=== PATIENT | female | born 1945 | race Caucasian/White ===

== ENCOUNTER 2017-02-14 14:33 | Emergency (ER) | payer OTHER ==
--- NOTE | 2017-02-14 16:11 | DIAGNOSTIC IMAGING REPORT ---
PROCEDURE: XR CHEST 2 VIEW INDICATION: FEVER TECHNIQUE: PA and lateral view. COMPARISON: Chest x-ray 05/30/2009 FINDINGS: Small right and moderate left basilar alveolar infiltrates. Cardiovascular structures are normal. Bony thorax is unremarkable. IMPRESSION: 1. Bilateral pneumonia. Recommend follow-up chest x-ray in 3 weeks to confirm complete resolution.
--- NOTE | 2017-02-14 16:23 | ED NURSING NOTES ---
Clinical Report - Nurses [facility] [address] [place] [address] 02/14/2017 14:35 Patient: PHANI BOOTH TRIAGE Triage time 14:42. Acuity: LEVEL 3. Chief Complaint: COUGH. Alert. No acute distress. SEPSIS SCREEN: Sepsis Screen. Negative (no infection suspected/documented). LISETTE COMA SCORE: [place] Coma Scale: 15- eyes open spontaneously (4); best verbal response- oriented x 4 (5); best motor response- obeys commands (6). --14:48 Jenn Black R.N. 14:42 02/14/17. BP: 158/70. HR: 89. RR: 24. O2 saturation: 96%. Temp: 97.8 F. Pain level now: 01/01. --14:48 Jenn Black R.N. Weight: 81.6 kg stated. Height/Length: 64 inches Per Patient. BMI: 30.9. --14:46 Jenn Black R.N. Medications None. --14:45 Jenn Black R.N. Allergies Codeine. Percocet. Soma. --14:45 Jenn Black R.N. History Arrived by private vehicle. Historian: patient. Accompanied by family. Primary physician (Dr. Chavez). Onset. (2 months ago and continues to get worse). 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 PAST MEDICAL HX: Immunizations: up-to-date. SOCIAL HX: Heavy tobacco smoker (cigarette)- 1 pack per day. Occasional alcohol use. No drug use. No infectious disease exposure. ABUSE ASSESSMENT: Abuse assessment: The patient was asked "Do you feel safe in your home?" and "Has anyone hurt you or threatened to hurt you?". No report of abuse. SELF HARM ASSESSMENT: A self harm assessment was performed. The patient answered "no" to the question "Do you have thoughts of harming or killing yourself?" and "Have you recently had thoughts about harming or killing others?". NUTRITIONAL RISK ASSESSMENT: The nutritional risk assessment revealed no deficiencies. FUNCTIONAL ASSESSMENT: Functional assessment: no impairments noted. LEARNING NEEDS ASSESSMENT: The learning needs assessment revealed no barriers. --14:48 Jenn Black R.N. PROBLEMS: "mild heart attack". Sciatica. Hypertension. Headache. --14:45 Jenn Black R.N. ADDITIONAL SURGERIES: Appendectomy. Hysterectomy. Inguinal Hernia Repair. --14:46 Jenn Black R.N. Interventions ID band on patient. Ambulatory. --14:48 Jenn Black R.N. PHYSICAL ASSESSMENT Ambulatory to room. GENERAL / NEURO / PSYCH: Alert. Appears in no acute distress. HEENT: Mucous membranes are pink. RESPIRATORY: Respirations not labored. CVS: Capillary refill less than 2 seconds. SKIN: Skin is warm and dry. --14:48 Jenn Black R.N. NURSING PROGRESS NOTES Patient gowned. Head of bed elevated. Two patient identifiers checked. Call light placed in reach. Side rails up x 2. Bed placed in lowest position. Brakes of bed on. Patient ready for evaluation- chart flagged. --14:49 Jenn Blakc R.N. Patient transported to radiology by stretcher with tech. --14:53 Jenn Black R.N. 15:03 02/14/2017 Duoneb (Ipratropium-Albuterol) Neb TX 1 unit dose given. Given by the respiratory therapist. Allergies verified and confirmed 5 rights. --15:03 Jenn Black R.N. 15:04. Patient ID band checked for patient name, birthdate and medical record number: patient confirmed. Blood samples drawn from the right antecubital space peripheral IV site by nurse per protocol ; labeled in presence of the patient and sent to lab: jody set. --15:04 Jenn Black R.N. 16:08 02/14/2017 Levaquin (Levofloxacin) PO 750 mg given. Allergies verified and confirmed 5 rights. --16:08 Jenn Black R.N. 16:08 02/14/17. BP: 160/72. HR: 73. RR: 20. O2 saturation: 97%. Temp: 98.1 F. Pain level now 2/10. --16:09 Jenn Black R.N. DISPOSITION / DISCHARGE ( 16:08 02/14/17. BP: 160/72. HR: 73. RR: 20. O2 saturation: 97%. Temp: 98.1 F. Pain level now 01/01. 16:09 Jenn Black R.N.). --16:47 Jenn Black R.N. 16:30 02/14/17. RR: 22. --16:47 Jenn Black R.N. 16:30. Departure time: 1630. No learning barriers present. Discharge instructions provided and reviewed with the patient. Reviewed medication(s) side effects, precautions, dosing and course information. Prescription(s) given to the patient. Reviewed referral to family practice for followup. Patient verbalized understanding. Written instructions provided in [place]. The patient was discharged home and accompanied by family. She left the Emergency Department ambulatory and via private vehicle. Family member driving. Medication list reviewed and validated. --16:48 Jenn Black R.N. Locked/Released at 02/14/2017 16:48 by Jenn Black R.N.
--- NOTE | 2017-02-14 16:23 | ED CLINICAL REPORT ---
Clinical Report - Physicians/Mid Levels [facility] [address] [place] [address] 02/14/2017 14:35 Patient: PHANI BOOTH Time Seen: 14:49 Feb 14 2017. Arrived- By private vehicle. Historian- patient and family. HISTORY OF PRESENT ILLNESS Chief Complaint: COUGH. 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 The illness is described as mild. The patient has had a cough. No muscle aches, sore throat, hoarseness, sinus pressure or sinus drainage. Additional history - No known contact with a sick individual. No recent travel. Recent medical care: Not recently seen/assessed. REVIEW OF SYSTEMS No headache, vomiting, pedal edema, calf pain or difficulty with urination. All systems otherwise negative, except as recorded above. PAST HISTORY No history of chronic obstructive pulmonary disease. SOCIAL HISTORY Smoker- current status unknown (>30 pack year history). No alcohol use. ADDITIONAL NOTES The nursing notes have been reviewed. PHYSICAL EXAM Vital Signs: 02/14/2017 14:42 BP: 158/70. HR: 89. RR: 24. O2 saturation: 96%. Temp: 97.8 F. Pain level now: 2/10. Appearance: Alert. No apparent distress. Does not appear to be in pain. ENT: Ears normal. Pharynx normal. Neck: Normal inspection. No meningeal signs. CVS: Normal heart rate and rhythm. Heart sounds normal. No cardiac murmur. Respiratory: Wheezing present. No accessory muscle use or retractions. Abdomen: Soft and nontender. No guarding or rebound tenderness. Back: Normal inspection. No CVA tenderness. Extremities: No lower extremity edema. Neuro: (tremor b/l hands). LABS, X-RAYS, AND EKG Chest X-ray: (IMPRESSION: 1. Negative chest. Electronically Final signed by:Jairon Pyle MD 02/14/2017 4:09:52 PM). Laboratory Tests: CBC w Diff: (ESTEBAN: 02/14/2017 15:05) ( MsgRcvd 02/14/2017 15:14) Final results Test Result Flag Units (Reference) WHITE BLOOD COUNT 7.8 K/uL (4.5-11.5) RED BLOOD COUNT 4.90 M/uL (4.00-5.20) HEMOGLOBIN 14.1 gm/dL (12.0-16.0) HEMATOCRIT 42.2 % (36.0-46.0) MEAN CELL VOLUME 86 fL (80-100) MEAN CORPUSCULAR HGB 29 pg (26-34) MEAN CORPUSCULAR HGB CONC 33 g/dL (31-37) RED CELL DISTRIBUTION WIDTH 14.8 % (11.6-14.8) PLATELET COUNT 262 K/uL (150-400) NEUTROPHIL % 78.5 H % (50-75) LYMPH % 17.5 L % (25-40) MONO % 3.2 % (3-14) EOSINOPHIL % 0.4 % (0-4) BASOPHIL % 0.4 % (0-2) CMP: (ESTEBAN: 02/14/2017 15:05) ( MsgRcvd 02/14/2017 15:44) Final results Test Result Flag Units (Reference) GLUCOSE 114 H mg/dL (70-110) BUN 9 mg/dL (7-18) CREATININE 0.9 mg/dL (0.6-1.3) Estimated GFR >60 mL/min Estimated GFR- >60 mL/min Note: Persistent reduction over 3 months in eGFR<60 mL/min/1.73 m2 defines CKD. Patients with eGFR values>=60 mL/min/1.73 m2 may also have CKD if evidence ofpersistent proteinuria. Additional information may be foundat www.kidney.org. SODIUM 142 mmol/L (136-145) POTASSIUM 3.5 mmol/L (3.5-5.1) CHLORIDE 107 mmol/L (98-107) CARBON DIOXIDE 25 mmol/L (21-32) CALCIUM 9.3 mg/dL (8.5-10.1) TOTAL PROTEIN 7.7 g/dL (6.4-8.2) ALBUMIN 3.3 g/dL (3.3-5.0) BILIRUBIN, TOTAL 0.5 mg/dL (0.0-1.0) ALKALINE PHOSPHATASE 91 U/L (46-116) AST (SGOT) 27 U/L (15-37) ALT (SGPT) 24 U/L (12-78) . PROGRESS AND PROCEDURES Course of Care: Patient here in the ER, with obvious signs of pneumonia, no comp surgery issues, she is not taking any chronic medications, no new murmur, no lower extremity swelling, leukocytosis, afebrile good sat in the ER. Patient here with daughter, and agrees to follow up in 2 weeks to ensure improvement. Started on antibiotics. No recent complications or hospitalizations. She denies comorbidities, however also states she does not like to see or frequent doctor's office. Spoke in regard to htn, and pt to have such convo with her pcp. Patient is stable. Symptoms better. Patient/family counseled. Disposition: Discharged. CLINICAL IMPRESSION Bacterial pneumonia. Hypertension. INSTRUCTIONS Drink plenty of fluids. Do not smoke. Prescription Medications: Albuterol HFA oral inhaler: inhale 1 to 2 puffs every four to six hours as needed for difficulty breathing. Dispense one (1) unit. No refills. Levaquin 750 mg: take 1 tab orally every day for 7 days. No refills. Substitution is permissible. Follow-up: Follow up with your doctor in two weeks. (Electronically signed by Gretchen Kang P.A.-C 02/14/2017 19:04)
--- NOTE | 2017-02-14 16:23 | ED NURSING NOTES ---
Clinical Report - Nurses [facility] [address] [place] [address] 02/14/2017 14:35 Patient: PHANI BOOTH TRIAGE Triage time 14:42. Acuity: LEVEL 3. Chief Complaint: COUGH. Alert. No acute distress. SEPSIS SCREEN: Sepsis Screen. Negative (no infection suspected/documented). LISETTE COMA SCORE: [place] Coma Scale: 15- eyes open spontaneously (4); best verbal response- oriented x 4 (5); best motor response- obeys commands (6). --14:48 Jenn Black R.N. 14:42 02/14/17. BP: 158/70. HR: 89. RR: 24. O2 saturation: 96%. Temp: 97.8 F. Pain level now: 01/01. --14:48 Jenn Black R.N. Weight: 81.6 kg stated. Height/Length: 64 inches Per Patient. BMI: 30.9. --14:46 Jenn Black R.N. Medications None. --14:45 Jenn Black R.N. Allergies Codeine. Percocet. Soma. --14:45 Jenn Black R.N. History Arrived by private vehicle. Historian: patient. Accompanied by family. Primary physician (Dr. Chavez). Onset. (2 months ago and continues to get worse). 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 PAST MEDICAL HX: Immunizations: up-to-date. SOCIAL HX: Heavy tobacco smoker (cigarette)- 1 pack per day. Occasional alcohol use. No drug use. No infectious disease exposure. ABUSE ASSESSMENT: Abuse assessment: The patient was asked "Do you feel safe in your home?" and "Has anyone hurt you or threatened to hurt you?". No report of abuse. SELF HARM ASSESSMENT: A self harm assessment was performed. The patient answered "no" to the question "Do you have thoughts of harming or killing yourself?" and "Have you recently had thoughts about harming or killing others?". NUTRITIONAL RISK ASSESSMENT: The nutritional risk assessment revealed no deficiencies. FUNCTIONAL ASSESSMENT: Functional assessment: no impairments noted. LEARNING NEEDS ASSESSMENT: The learning needs assessment revealed no barriers. --14:48 Jenn Black R.N. PROBLEMS: "mild heart attack". Sciatica. Hypertension. Headache. --14:45 Jenn Black R.N. ADDITIONAL SURGERIES: Appendectomy. Hysterectomy. Inguinal Hernia Repair. --14:46 Jenn Black R.N. Interventions ID band on patient. Ambulatory. --14:48 Jenn Black R.N. PHYSICAL ASSESSMENT Ambulatory to room. GENERAL / NEURO / PSYCH: Alert. Appears in no acute distress. HEENT: Mucous membranes are pink. RESPIRATORY: Respirations not labored. CVS: Capillary refill less than 2 seconds. SKIN: Skin is warm and dry. --14:48 Jenn Black R.N. NURSING PROGRESS NOTES Patient gowned. Head of bed elevated. Two patient identifiers checked. Call light placed in reach. Side rails up x 2. Bed placed in lowest position. Brakes of bed on. Patient ready for evaluation- chart flagged. --14:49 Jenn Black R.N. Patient transported to radiology by stretcher with tech. --14:53 Jenn Black R.N. 15:03 02/14/2017 Duoneb (Ipratropium-Albuterol) Neb TX 1 unit dose given. Given by the respiratory therapist. Allergies verified and confirmed 5 rights. --15:03 Jenn Black R.N. 15:04. Patient ID band checked for patient name, birthdate and medical record number: patient confirmed. Blood samples drawn from the right antecubital space peripheral IV site by nurse per protocol ; labeled in presence of the patient and sent to lab: jody set. --15:04 Jenn Black R.N. 16:08 02/14/2017 Levaquin (Levofloxacin) PO 750 mg given. Allergies verified and confirmed 5 rights. --16:08 Jenn Black R.N. 16:08 02/14/17. BP: 160/72. HR: 73. RR: 20. O2 saturation: 97%. Temp: 98.1 F. Pain level now 2/10. --16:09 Jenn Black R.N. DISPOSITION / DISCHARGE ( 16:08 02/14/17. BP: 160/72. HR: 73. RR: 20. O2 saturation: 97%. Temp: 98.1 F. Pain level now 01/01. 16:09 Jenn Black R.N.). --16:47 Jenn Black R.N. 16:30 02/14/17. RR: 22. --16:47 Jenn Black R.N. 16:30. Departure time: 1630. No learning barriers present. Discharge instructions provided and reviewed with the patient. Reviewed medication(s) side effects, precautions, dosing and course information. Prescription(s) given to the patient. Reviewed referral to family practice for followup. Patient verbalized understanding. Written instructions provided in Mong[place]ian. The patient was discharged home and accompanied by family. She left the Emergency Department ambulatory and via private vehicle. Family member driving. Medication list reviewed and validated. --16:48 Jenn Black R.N. Locked/Released at 02/14/2017 16:48 by Jenn Black R.N.
--- NOTE | 2017-02-14 16:23 | ED ORDER SUMMARY ---
..... Patient: PHANI BOOTH OrderSheet [facility] VisitID: [id number] [place] [address] 71y, F Registration Date/Time: 02/14/2017 ORDER SHEET Weight: 81.6 kg (stated) Allergies: Codeine, Percocet, Soma GENERAL ORDERS: Chest 2V Urgent (14:47 02/14/2017 EKoroleva P.A.-C) (Ack 14:50 RKaruga) (15:03 SReitz R.N.) CBC w Diff Urgent (14:47 02/14/2017 EKoroleva P.A.-C) (Ack 14:50 RKaruga) (15:03 SReitz R.N.) CMP Urgent (14:47 02/14/2017 EKoroleva P.A.-C) (Ack 14:50 RKaruga) (15:03 SReitz R.N.) MEDICATION ORDERS: DuoNeb Neb Tx 1 unit dose (NOW) (14:47 02/14/2017 EKoroleva P.A.-C) (15:03 SReitz R.N.) Levaquin PO 750 mg (NOW) (15:45 02/14/2017 EKoroleva P.A.-C) (Ack 16:03 SReitz R.N.) (16:08 SReitz R.N.) IV FLUIDS: ORDER SHEET NOTES: [Electronically signed by Jenn Black R.N. (16:48 02/14/2017)] [Electronically signed by Gretchen Kang P.A.-C (19:04 02/14/2017)] [Electronically locked/signed by Jenn Black R.N. (16:48 02/14/2017)]
--- NOTE | 2017-02-14 16:23 | ED ORDER SUMMARY ---
..... Patient: PHANI BOOTH OrderSheet [facility] VisitID: [id number] [place] [address] 71y, F Registration Date/Time: 02/14/2017 ORDER SHEET Weight: 81.6 kg (stated) Allergies: Codeine, Percocet, Soma GENERAL ORDERS: Chest 2V Urgent (14:47 02/14/2017 EKoroleva P.A.-C) (Ack 14:50 RKaruga) (15:03 SReitz R.N.) CBC w Diff Urgent (14:47 02/14/2017 EKoroleva P.A.-C) (Ack 14:50 RKaruga) (15:03 SReitz R.N.) CMP Urgent (14:47 02/14/2017 EKoroleva P.A.-C) (Ack 14:50 RKaruga) (15:03 SReitz R.N.) MEDICATION ORDERS: DuoNeb Neb Tx 1 unit dose (NOW) (14:47 02/14/2017 EKoroleva P.A.-C) (15:03 SReitz R.N.) Levaquin PO 750 mg (NOW) (15:45 02/14/2017 EKoroleva P.A.-C) (Ack 16:03 SReitz R.N.) (16:08 SReitz R.N.) IV FLUIDS: ORDER SHEET NOTES: [Electronically signed by Jenn Black R.N. (16:48 02/14/2017)] [Electronically signed by Gretchen Kang P.A.-C (19:04 02/14/2017)] [Electronically locked/signed by Jenn Black R.N. (16:48 02/14/2017)]
--- NOTE | 2017-02-14 19:04 | ED DISCHARGE INSTRUCTIONS ---
Patient: PHANI BOOTH General Instructions [facility] VisitID: [id number] [place] [address] 71y, F Registration Date/Time: 02/14/2017 Bacterial pneumonia. Hypertension. INSTRUCTIONS Drink plenty of fluids. Do not smoke. Prescription Medications: Albuterol HFA oral inhaler: inhale 1 to 2 puffs every four to six hours as needed for difficulty breathing. Dispense one (1) unit. No refills. Levaquin 750 mg: take 1 tab orally every day for 7 days. No refills. Substitution is permissible. Follow-up: Follow up with your doctor in two weeks. ADDITIONAL INFORMATION Pneumonia (Adult) Pneumonia is an infection deep within the lung, in the small air sacs (alveoli). It may be due to a virus or bacteria and is usually treated with an antibiotic. Severe cases require treatment in the hospital. Milder cases can be treated at home. Symptoms usually start to improve during the first2 days of treatment. Home Care: Rest at home for the first 23 days or until you feel stronger. When resuming activity, dont let yourself become overly tired. Avoid exposure to cigarette smoke (yours or others). You may use acetaminophen (Tylenol) or ibuprofen (Motrin, Advil) to control fever or pain, unless another medicine was prescribed. [NOTE: If you have chronic liver or kidney disease or ever had a stomach ulcer or GI bleeding, talk with your doctor before using these medicines.] (Aspirin should never be used in anyone under 18 years of age who is ill with a fever. It may cause severe liver damage.) Your appetite may be poor so a light diet is fine. Keep well hydrated by drinking 68 glasses of fluids per day (water, sport drinks such as Gatorade, sodas without caffeine, juices, tea, soup, etc.). This will help loosen secretions in the lung, making it easier for you to cough up the phlegm (sputum). If you also have heart or kidney disease, check with your doctor before you drink extra amounts of fluids. Finish all antibiotic medicine prescribed, even if you are feeling better after a few days. Follow Up with your doctor in the next 23 days (or as advised) to be sure you are responding properly to the medicine. [NOTE: If you are age 65 or older, or if you have chronic lung disease (asthma, emphysema or COPD), we recommendthe pneumococcal vaccination and a yearlyinfluenzavaccination(flu-shot) every . Ask your doctor about this.] Get Prompt Medical Attention if any of the following occur: Not getting better within the first 48 hours of treatment Increasing shortness of breath or rapid breathing (over 25 breaths/minute) Coughing up blood or increasing chest pain with breathing Fever of 100.4F (38C) oral or higher, not better with fever medication Increasing weakness, dizziness or fainting Increasing thirst or dry mouth Sinus pain, headache or a stiff neck Chest pain not caused by coughing Levofloxacin Oral tablet What is this medicine? LEVOFLOXACIN (ashwin abdul) is a quinolone antibiotic. It is used to treat certain kinds of bacterial infections. It will not work for colds, flu, or other viral infections. How should I use this medicine? Take this medicine by mouth with a full glass of water. Follow the directions on the prescription label. This medicine can be taken with or without food. Take your medicine at regular intervals. Do not take your medicine more often than directed. Do not skip doses or stop your medicine early even if you feel better. Do not stop taking except on your doctor's advice. A special MedGuide will be given to you by the pharmacist with each prescription and refill. Be sure to read this information carefully each time. Talk to your detonator assembler regarding the use of this medicine in children. While this drug may be prescribed for children as young as 6 months for selected conditions, precautions do apply. What side effects may I notice from receiving this medicine? Side effects that you should report to your doctor or health healthcare consulting manager as soon as possible: -allergic reactions like skin rash or hives, swelling of the face, lips, or tongue -changes in vision -confusion, nightmares or hallucinations -difficulty breathing -irregular heartbeat, chest pain -joint, muscle or tendon pain -pain or difficulty passing urine -persistent headache with or without blurred vision -redness, blistering, peeling or loosening of the skin, including inside the mouth -seizures -unusual pain, numbness, tingling, or weakness -vaginal irritation, discharge Side effects that usually do not require medical attention (report to your doctor or health healthcare consulting manager if they continue or are bothersome): -diarrhea -dry mouth -headache -stomach upset, nausea -trouble sleeping What may interact with this medicine? Do not take this medicine with any of the following medications: - arsenic trioxide - chloroquine - droperidol - medicines for irregular heart rhythm like amiodarone, disopyramide, dofetilide, flecainide, quinidine, procainamide, sotalol - some medicines for depression or mental problems like phenothiazines, pimozide, and ziprasidone This medicine may also interact with the following medications: - amoxapine -antacids - cisapride - dairy products - didanosine (ddI) buffered tablets or powder - haloperidol - multivitamins -NSAIDS, medicines for pain and inflammation, like ibuprofen or naproxen - retinoid products like tretinoin or isotretinoin - risperidone - some other antibiotics like clarithromycin or erythromycin - sucralfate - theophylline - warfarin What if I miss a dose? If you miss a dose, take it as soon as you remember. If it is almost time for your next dose, take only that dose. Do not take double or extra doses. Where should I keep my medicine? Keep out of the reach of children. Store at room temperature between 15 and 30 degrees C (59 and 86 degrees F). Keep in a tightly closed container. Throw away any unused medicine after the expiration date. What should I tell my health care provider before I take this medicine? They need to know if you have any of these conditions: cerebral disease irregular heartbeat kidney disease seizure disorder an unusual or allergic reaction to levofloxacin, other antibiotics or medicines, foods, dyes, or preservatives or trying to get breast-feeding What should I watch for while using this medicine? Tell your doctor or health healthcare consulting manager if your symptoms do not improve or if they get worse. Drink several glasses of water a day and cut down on drinks that contain caffeine. You must not get dehydrated while taking this medicine. You may get drowsy or dizzy. Do not drive, use machinery, or do anything that needs mental alertness until you know how this medicine affects you. Do not sit or stand up quickly, especially if you are an older patient. This reduces the risk of dizzy or fainting spells. This medicine can make you more sensitive to the sun. Keep out of the sun. If you cannot avoid being in the sun, wear protective clothing and use a sunscreen. Do not use sun lamps or tanning beds/booths. Contact your doctor if you get a sunburn. If you are a diabetic monitor your blood glucose carefully. If you get an unusual reading stop taking this medicine and call your doctor right away. Do not treat diarrhea with [id number] products. Contact your doctor if you have diarrhea that lasts more than 2 days or if the diarrhea is severe and watery. Avoid antacids, calcium, iron, and zinc products for 2 hours before and 2 hours after taking a dose of this medicine. You have been given the following additional information: Pneumonia (Adult) Levofloxacin Oral tablet (Electronically signed by Gretchen Kang P.A.-C 02/14/2017 19:04)
--- NOTE | 2017-02-14 19:04 | ED MAR SUMMARY ---
..... Medication Administration Record [facility] [address] [place] [address] Patient: PHANI BOOTH Visit ID: [id number] 71y, F Weight: 81.6 kg Height/Length: 64 in BMI: 30.9 ALLERGIES: Codeine, Percocet, Soma Given 15:03 02/14/2017 Jenn Black RLuz Medication Administered: DUONEB [NEB TX] (IPRATROPIUM-ALBUTEROL), Dose: 1 unit dose Neb TX. Medication Ordered: DuoNeb Neb Tx 1 unit dose (NOW). Given 16:08 02/14/2017 Jenn Black, RSunnyNSunny Medication Administered: LEVAQUIN [PO] (LEVOFLOXACIN), Dose: 750 mg PO. Medication Ordered: Levaquin PO 750 mg (NOW).
--- NOTE | 2017-02-14 19:04 | ED DISCHARGE INSTRUCTIONS ---
Patient: PHANI BOOTH General Instructions [facility] VisitID: [id number] [place] [address] 71y, F Registration Date/Time: 02/14/2017 Bacterial pneumonia. Hypertension. INSTRUCTIONS Drink plenty of fluids. Do not smoke. Prescription Medications: Albuterol HFA oral inhaler: inhale 1 to 2 puffs every four to six hours as needed for difficulty breathing. Dispense one (1) unit. No refills. Levaquin 750 mg: take 1 tab orally every day for 7 days. No refills. Substitution is permissible. Follow-up: Follow up with your doctor in two weeks. ADDITIONAL INFORMATION Pneumonia (Adult) Pneumonia is an infection deep within the lung, in the small air sacs (alveoli). It may be due to a virus or bacteria and is usually treated with an antibiotic. Severe cases require treatment in the hospital. Milder cases can be treated at home. Symptoms usually start to improve during the first2 days of treatment. Home Care: Rest at home for the first 23 days or until you feel stronger. When resuming activity, dont let yourself become overly tired. Avoid exposure to cigarette smoke (yours or others). You may use acetaminophen (Tylenol) or ibuprofen (Motrin, Advil) to control fever or pain, unless another medicine was prescribed. [NOTE: If you have chronic liver or kidney disease or ever had a stomach ulcer or GI bleeding, talk with your doctor before using these medicines.] (Aspirin should never be used in anyone under 18 years of age who is ill with a fever. It may cause severe liver damage.) Your appetite may be poor so a light diet is fine. Keep well hydrated by drinking 68 glasses of fluids per day (water, sport drinks such as Gatorade, sodas without caffeine, juices, tea, soup, etc.). This will help loosen secretions in the lung, making it easier for you to cough up the phlegm (sputum). If you also have heart or kidney disease, check with your doctor before you drink extra amounts of fluids. Finish all antibiotic medicine prescribed, even if you are feeling better after a few days. Follow Up with your doctor in the next 23 days (or as advised) to be sure you are responding properly to the medicine. [NOTE: If you are age 65 or older, or if you have chronic lung disease (asthma, emphysema or COPD), we recommendthe pneumococcal vaccination and a yearlyinfluenzavaccination(flu-shot) every . Ask your doctor about this.] Get Prompt Medical Attention if any of the following occur: Not getting better within the first 48 hours of treatment Increasing shortness of breath or rapid breathing (over 25 breaths/minute) Coughing up blood or increasing chest pain with breathing Fever of 100.4F (38C) oral or higher, not better with fever medication Increasing weakness, dizziness or fainting Increasing thirst or dry mouth Sinus pain, headache or a stiff neck Chest pain not caused by coughing Levofloxacin Oral tablet What is this medicine? LEVOFLOXACIN (ashwin abdul) is a quinolone antibiotic. It is used to treat certain kinds of bacterial infections. It will not work for colds, flu, or other viral infections. How should I use this medicine? Take this medicine by mouth with a full glass of water. Follow the directions on the prescription label. This medicine can be taken with or without food. Take your medicine at regular intervals. Do not take your medicine more often than directed. Do not skip doses or stop your medicine early even if you feel better. Do not stop taking except on your doctor's advice. A special MedGuide will be given to you by the pharmacist with each prescription and refill. Be sure to read this information carefully each time. Talk to your track layer head regarding the use of this medicine in children. While this drug may be prescribed for children as young as 6 months for selected conditions, precautions do apply. What side effects may I notice from receiving this medicine? Side effects that you should report to your doctor or health regular senior care provider as soon as possible: -allergic reactions like skin rash or hives, swelling of the face, lips, or tongue -changes in vision -confusion, nightmares or hallucinations -difficulty breathing -irregular heartbeat, chest pain -joint, muscle or tendon pain -pain or difficulty passing urine -persistent headache with or without blurred vision -redness, blistering, peeling or loosening of the skin, including inside the mouth -seizures -unusual pain, numbness, tingling, or weakness -vaginal irritation, discharge Side effects that usually do not require medical attention (report to your doctor or health regular senior care provider if they continue or are bothersome): -diarrhea -dry mouth -headache -stomach upset, nausea -trouble sleeping What may interact with this medicine? Do not take this medicine with any of the following medications: - arsenic trioxide - chloroquine - droperidol - medicines for irregular heart rhythm like amiodarone, disopyramide, dofetilide, flecainide, quinidine, procainamide, sotalol - some medicines for depression or mental problems like phenothiazines, pimozide, and ziprasidone This medicine may also interact with the following medications: - amoxapine -antacids - cisapride - dairy products - didanosine (ddI) buffered tablets or powder - haloperidol - multivitamins -NSAIDS, medicines for pain and inflammation, like ibuprofen or naproxen - retinoid products like tretinoin or isotretinoin - risperidone - some other antibiotics like clarithromycin or erythromycin - sucralfate - theophylline - warfarin What if I miss a dose? If you miss a dose, take it as soon as you remember. If it is almost time for your next dose, take only that dose. Do not take double or extra doses. Where should I keep my medicine? Keep out of the reach of children. Store at room temperature between 15 and 30 degrees C (59 and 86 degrees F). Keep in a tightly closed container. Throw away any unused medicine after the expiration date. What should I tell my health care provider before I take this medicine? They need to know if you have any of these conditions: cerebral disease irregular heartbeat kidney disease seizure disorder an unusual or allergic reaction to levofloxacin, other antibiotics or medicines, foods, dyes, or preservatives or trying to get breast-feeding What should I watch for while using this medicine? Tell your doctor or health regular senior care provider if your symptoms do not improve or if they get worse. Drink several glasses of water a day and cut down on drinks that contain caffeine. You must not get dehydrated while taking this medicine. You may get drowsy or dizzy. Do not drive, use machinery, or do anything that needs mental alertness until you know how this medicine affects you. Do not sit or stand up quickly, especially if you are an older patient. This reduces the risk of dizzy or fainting spells. This medicine can make you more sensitive to the sun. Keep out of the sun. If you cannot avoid being in the sun, wear protective clothing and use a sunscreen. Do not use sun lamps or tanning beds/booths. Contact your doctor if you get a sunburn. If you are a diabetic monitor your blood glucose carefully. If you get an unusual reading stop taking this medicine and call your doctor right away. Do not treat diarrhea with [id number] products. Contact your doctor if you have diarrhea that lasts more than 2 days or if the diarrhea is severe and watery. Avoid antacids, calcium, iron, and zinc products for 2 hours before and 2 hours after taking a dose of this medicine. You have been given the following additional information: Pneumonia (Adult) Levofloxacin Oral tablet (Electronically signed by Gretchen Kang P.A.-C 02/14/2017 19:04)
--- NOTE | 2017-02-14 19:04 | ED MAR SUMMARY ---
..... Medication Administration Record [facility] [address] [place] [address] Patient: PHANI BOOTH Visit ID: [id number] 71y, F Weight: 81.6 kg Height/Length: 64 in BMI: 30.9 ALLERGIES: Codeine, Percocet, Soma Given 15:03 02/14/2017 Jenn Black RLuz Medication Administered: DUONEB [NEB TX] (IPRATROPIUM-ALBUTEROL), Dose: 1 unit dose Neb TX. Medication Ordered: DuoNeb Neb Tx 1 unit dose (NOW). Given 16:08 02/14/2017 Jenn Black, RSunnyNSunny Medication Administered: LEVAQUIN [PO] (LEVOFLOXACIN), Dose: 750 mg PO. Medication Ordered: Levaquin PO 750 mg (NOW).
--- NOTE | 2017-02-14 19:05 | ED MED RECONCILIATION SUMMARY ---
Patient: PHANI BOOTH Medication Reconciliation Report [facility] VisitID: [id number] [address] [place] [address] 71y, F Registration Date/Time: 02/14/2017 Weight: 81.6 kg Height/Length: 64 in. BMI: 30.9 ALLERGIES: Codeine, Percocet, Soma The patient's Home Medications are listed below: NONE. The source(s) of the original Home Medication information: Not obtained. The following Medications were given to the patient in the Emergency Department: Duoneb [Neb Tx] Neb TX 1 unit dose, administered: 02/14/2017 3:03:00 PM Levaquin [PO] PO 750 mg, administered: 02/14/2017 4:08:00 PM The following Medications were prescribed to the patient: Albuterol HFA oral inhaler: inhale 1 to 2 puffs every four to six hours as needed for difficulty breathing. Dispense one (1) unit. No refills. -- Gretchen Kang PSunnyADread Levaquin 750 mg: take 1 tab orally every day for 7 days. No refills. Substitution is permissible. -- Gretchen Kang P.A.-C
--- NOTE | 2017-02-14 19:05 | ED MED RECONCILIATION SUMMARY ---
Patient: PHANI BOOTH Medication Reconciliation Report [facility] VisitID: [id number] [address] [place] [address] 71y, F Registration Date/Time: 02/14/2017 Weight: 81.6 kg Height/Length: 64 in. BMI: 30.9 ALLERGIES: Codeine, Percocet, Soma The patient's Home Medications are listed below: NONE. The source(s) of the original Home Medication information: Not obtained. The following Medications were given to the patient in the Emergency Department: Duoneb [Neb Tx] Neb TX 1 unit dose, administered: 02/14/2017 3:03:00 PM Levaquin [PO] PO 750 mg, administered: 02/14/2017 4:08:00 PM The following Medications were prescribed to the patient: Albuterol HFA oral inhaler: inhale 1 to 2 puffs every four to six hours as needed for difficulty breathing. Dispense one (1) unit. No refills. -- Gretchen Kang PSunnyADread Levaquin 750 mg: take 1 tab orally every day for 7 days. No refills. Substitution is permissible. -- Gretchen Kang P.A.-C
== END 2017-02-14 16:30 | disposition home or self-care (01) ==
LOC: ED SRH 14:33
DX: J15.9 Unspecified bacterial pneumonia (principal); I10 Essential (primary) hypertension; F17.210 Nicotine dependence, cigarettes, uncomplicated; Z88.5 Allergy status to narcotic agent; Z88.8 Allergy status to other drugs, medicaments and biological substances
CPT/HCPCS: 90100; 95059